=== PATIENT | male | born 1985 | race Caucasian/White ===

== ENCOUNTER 2024-07-20 19:26 | Inpatient (IN) | payer BC, SELFPAY ==
--- NOTE | ~2024-07-20 | CT_ITS ---
CLINICAL HISTORY: Severe abdominal distention, ascites?, SOB CT abdomen and pelvis without contrast Comparison: None Findings: Subsegmental atelectasis in the bases. Small hiatal hernia. 1.2 cm subcarinal lymph node. Hepatic steatosis. Hepatomegaly measuring 28.1 cm in the craniocaudal dimension. Gallbladder, pancreas, spleen, and adrenal glands are within normal limits. No hydronephrosis or urolithiasis. No bowel obstruction, pneumoperitoneum, or pneumatosis. Pelvic contents unremarkable. Normal appendix. Moderate abdominopelvic ascites. No acute fracture. IMPRESSION: 1. Moderate abdominopelvic ascites. 2. Hepatomegaly with hepatic steatosis. This document has been electronically signed by: Shannon Vidales MD on 07/20/2024 23:24:40
--- NOTE | ~2024-07-20 | US_ITS ---
Ultrasound guided paracentesis History: Symptomatic ascites. Risks and benefits and possible complications were discussed with the patient and consent form was signed. A safe pocket of ascitic fluid was identified using ultrasound guidance, and the overlying skin was marked. The right abdomen was prepped and draped in sterile fashion. 1% lidocaine was used as a local anesthetic. Using ultrasound guidance, a 5 fr catheter was placed into the ascitic pocket. 5.7 liters of yellow fluid was removed passively. The catheter was then removed. A few commercial pest control representative images from before and after the examination were obtained. The procedure was performed by Efren Montes De Oca NP and supervised by Kezia Posey MD. US/US paracentesis abd w/image Impression: Ultrasound-guided paracentesis as described above. No immediate complications Electronically signed by: Swapnil Posey MD 08/06/2024 01:55 PM EDT
--- NOTE | ~2024-07-20 | XR_ITS ---
CLINICAL HISTORY: dyspnea, tachycardic 2 view chest x-ray Comparison: None Findings: Low lung volume. Right basilar subsegmental atelectatic changes. Heart size is normal. No acute fracture. IMPRESSION: Low lung volume. Right basilar subsegmental atelectatic changes. Otherwise unremarkable. This document has been electronically signed by: Sabino Abad MD on 07/20/2024 20:27:02
[2024-07-20 19:34] VITALS: BP 127/79; PULSE 140; RESP 24; TEMP 36.3; O2SAT 92; BMI 42.2
--- NOTE | 2024-07-20 19:34 | ED_ITS ---
HPI - General Adult General Chief complaint: Dyspnea Stated complaint: sob,bilateral leg and abd swelling Time Seen by Provider: 07/20/24 21:07 Source: patient Mode of arrival: ambulatory Limitations: no limitations History of Present Illness ED Provider: DR. Bernal HPI narrative: 39-year-old male was history of hypertension was controlled with HCTZ patient is not compliant with the medication for the past year patient noticed that for the last 2 weeks is gaining weight and abdominal distension affecting his breathing, patient also noted bilateral lower, no fever, no chills, no bleeding disorders, congestive heart failure, no known kidney disease, patient admit to drinking alcohol every day. Never had this problem in the past. Related Data Allergies Allergy/AdvReac Type Severity Reaction Status Date / Time No Known Allergies Allergy Verified 07/20/24 19:37 Review of Systems 2 Review of Systems: All other systems are reviewed and are negative Constitutional: Reports as per HPI and Reports no additional constitutional complaints Eyes: Reports as per HPI and Reports no additional eye complaints Reports system reviewed and no additional complaints, except as documented Cardiovascular: Reports as per HPI and Reports no additional cardiovascular complaints Respiratory: Reports as per HPI and Reports no additional respiratory complaints Gastrointestinal: Reports as per HPI and Reports no additional gastrointestinal complaints Genitourinary: Reports no additional female genitourinary complaints Musculoskeletal: Reports no additional musculoskeletal complaints Skin/Breast: Reports system reviewed and no additional complaints, except as docu Psychiatric: Reports no additional psychiatric complaints Endocrine: Reports no additional endocrine complaints Hematologic/Lymphatic: Reports no additional hematologic/lymphatic complaints Allergic/Immunologic: Reports no additional allergic/immunologic complaints Reports system reviewed and no additional complaints, except as documented and Reports Abnormal speech present [facility] Social History Social History Alcohol intake: current Alcohol intake frequency: 3 or more drinks per day Alcohol type: hard liquor Smoked in Last 30 Days: No Use of substances other than those prescribed or required for medical reasons: No Advance Directives: No Advance Directives Information Provided: No Do you have a plan to hurt others: No Plan Physical Exam ED Vital Signs: Vital Signs - 24 hr 07/20/24 19:34 07/20/24 20:12 07/20/24 20:13 Temperature 97.3 F Pulse Rate 140 H 133 H Respiratory Rate 24 H 34 H Blood Pressure 127/79 124/84 Pulse Oximetry 92 90 L 93 Oxygen Delivery Method Room Air Room Air Nasal Cannula Oxygen Flow Rate 2 07/20/24 21:34 07/20/24 22:48 Temperature Pulse Rate 146 H 134 H Respiratory Rate 30 H 30 H Blood Pressure 126/81 126/79 Pulse Oximetry 96 96 Oxygen Delivery Method Nasal Cannula Nasal Cannula Oxygen Flow Rate 2 2 BMI result Body Mass Index 42.2 Vital signs have been reviewed and appear to be correct. Blood pressure elevated. Heart rate normal. Respiratory rate normal. Temperature normal. Oxygen saturation normal. Appearance: Alert. Oriented X3. No acute distress. Head: Normal external exam. Normocephalic. Atraumatic. No Rm signs noted. No raccoon eyes noted Eyes: PERRLA. EOMI. Conjunctiva and sclera normal. Eyelids normal. ENT: TM's Normal. Pharynx normal. Uvula midline. Moist mucous membranes. No trismus noted. No drooling noted. No muffled voice noted. Neck: Normal inspection. Neck supple. FROM. No adenopathy. Thyroid Normal. No meningeal signs. No neck mass noted. CVS: Normal heart rate and rhythm. Heart sound normal. No murmurs noted. Pulses normal throughout. Respiratory: No respiratory distress. Painless inspiration. Breath sounds normal. No wheezes/rales/rhonchi noted. Chest nontender. No accessory muscle usage noted or decreased air movement noted. Abdomen: Distended, with diffuse ascites, Bowel sounds normal in all 4 quadrants. No distention noted. No organomegaly noted. No visible injury noted. Back: No CVA tenderness. Full range of motion noted. Skin: Skin warm and dry. Normal skin color. Normal skin turgor. No rashes/lesions/lacerations noted. Extremities: +2 bilateral lower extremity edema. Extremities exhibit normal range of motion. Extremities nontender. Neuro: Oriented X 3. Cranial nerve exam: II-XII are grossly intact No motor deficit. No sensory deficit. Reflexes normal. Course Course Course Narrative: This is a rapid medical exam performed by Danna Martinez NP: Additional HPI, ROS, PE not included below will be deferred to primary provider. Patient is a 39-year-old male with history of HTN, was previously on HCTZ but stopped taking it on his own, presenting to the ED with complaint of dyspnea, abdominal distention and lower extremity edema for the past week. Reports weight gain but does not know how much. Denies prior dx of heart failure or hepatic disease. Tachycardic and hypoxic in triage, speaking 3-4 word sentences. Plan: EKG, labs, cxr Reevaluation(s) Reevaluation #1: 39 year no cardiac, renal, or hepatic history well known history of alcohol intake daily, was elevated LFTs and ascites, s/p abdominal paracentesis drained 5200 mL, patient feels better able to breathe better, abdomen is less distended. Will admit, no suspicion for SBP. Lactulose for elevated ammonia. Time: 01:15 Medications Administered Discontinued Medications Generic Name Dose Route Start Last Admin Trade Name Freq PRN Reason Stop Dose Admin Albumin Human 100 mls @ 133.333 mls/hr 07/20/24 21:30 07/20/24 23:24 Kedbumin 25 % IV 07/20/24 23:14 Infused Q1H ANTHONY Infusion Lactulose 60 gm 07/20/24 22:04 07/20/24 22:34 Lactulose 20 Gm/30 Ml Solution PO 07/20/24 22:05 60 gm ONCE ONE Administration Procedures Paracentesis Time Out Performed: Yes Indication: Ascites Procedure: therapeutic paracentesis Location: LLQ Local Anesthetic: lidocaine 1% Amount of anesthesia used (mL): 5 Bedside Ultrasound Used: yes, Ascites confirmed and location marked Preparation: sterile prep and drape Amount of fluid obtained (mL): 5,200 Fluid: clear Size of Needle Used: 20 Post Procedure Exam: awake, alert Patient Tolerated Procedure: well Complications: none Medical Decision Making Differential Diagnosis Differential Diagnoses: The differential diagnosis associated with the presentation includes (Alcoholic hepatitis, ascites, MASSIEL, CHF, derangement, severe anemia.) Admission/Observation Consideration of admission/observation: Escalation of care including admission/observation considered Lab Data MDM Lab Attestation statement: I reviewed the patient's lab results. 07/20/24 19:48 07/20/24 19:48 Labs: Lab Results 07/20/24 07/20/24 07/20/24 Range/Units 19:48 19:55 21:38 WBC 16.9 H (4.8-10.8) X10*3/uL RBC 3.31 L (4.60-5.80) X10*6/uL Hgb 12.1 L (14.0-18.0) g/dl Hct 35.7 L (42.0-52.0) % MCV 107.9 H (80.0-98.0) fL MCH 36.6 H (27.0-33.0) pg MCHC 33.9 (31.0-36.0) g/dl RDW 18.6 H (11.0-16.0) % Plt Count 176 (160-400) X10*3/uL MPV 10.0 (9.4-12.4) fL Immature Gran % (Auto) 1.1 H (0.0-0.4) % Neut % (Auto) 79.2 H (45-73) % Lymph % (Auto) 11.1 L (20-40) % [place] % (Auto) 7.5 (2-11) % Eos % (Auto) 0.3 (0-4) % Baso % (Auto) 0.8 (0-2) % Lymph # (Auto) 1.9 (1.2-4.9) X10*3/uL [place] # (Auto) 1.3 H (0.1-1.2) X10*3/uL Eos # (Auto) 0.1 (0.0-0.4) X10*3/uL Baso # (Auto) 0.1 (0.0-0.2) X10*3/uL Abs Immat Gran (auto) 0.18 H (0.00-0.03) X10*3/uL Absolute Neuts (auto) 13.4 H (2.0-8.3) x10*3/uL Absolute Nucleated RBC 0.020 H (0.0-0.012) X10*3/uL Nucleated RBC % (auto) 0.1 (0.0-0.2) /100WBC PT 15.5 H (10.9-12.4) SEC INR 1.3 H (0.9-1.1) VBG pH 7.49 H (7.32-7.43) VBG pCO2 33 mmHg VBG pO2 182 mmHg VBG HCO3 26 (22-26) mmol/L VBG O2 Saturation 100.0 % VBG Base Excess 3.2 mmol/L Sodium 134 L (135-145) mmol/L Potassium 4.2 (3.3-5.1) mmol/L Chloride 101 (96-108) mmol/L Carbon Dioxide 22 (22-29) mmol/L Anion Gap 15 (12-20) BUN 5 L (9-16) mg/dL Creatinine 0.80 (0.5-1.4) mg/dL Estim Creat Clear Calc 158.2 Estimated GFR > 60 Random Glucose 157 H (60-115) mg/dL Calcium 7.8 L (8.4-10.2) mg/dL Magnesium 1.8 (1.6-2.6) mg/dL Total Bilirubin 4.0 H (0.0-1.0) mg/dL AST 290 H (5-37) U/L ALT 88 H (0-40) U/L Alkaline Phosphatase 379 H (39-117) U/L Ammonia 72 H (13-55) umol/L Troponin I High Sens 5.0 (<3.5-35.0) ng/L B-Natriuretic Peptide < 10 (<100) pg/mL Total Protein 7.8 (6.5-8.0) g/dL Albumin 2.5 L (3.5-5.0) g/dL Lipase 111 H (8-78) U/L Influenza Type A (PCR) NEGATIVE (Negative) Influenza Type B (PCR) NEGATIVE (Negative) RSV RNA Qual (PCR) NEGATIVE (Negative) SARS-CoV-2 RNA (RT-PCR) NEGATIVE (Negative) Independent Interpretation I performed an independent interpretation of an: Plain X-Ray (Chest:Low lung volume. Right basilar subsegmental atelectatic changes. Otherwise unremarkable.) and CT Scan (Abdomen pelvis:1. Moderate abdominopelvic ascites. 2. Hepatomegaly with hepatic steatosis.) Radiology Impression Discussion of test interpretation with radiology: I have reviewed the radiologist's reading. Critical Care Time Critical Care Time Critical Care Time: Yes Total Critical Care Time: 60 Attestation: The patient was critically ill with a high probability of imminent or life- threatening deterioration. I spent greater than 30 minutes of discontinuous time evaluating the patient, delivering critical care at the bedside, discussing evaluating data with consultants. Critical care time does not include time spent performing separately billable procedures or teaching. Time spent performing critical care was 60 minutes. Discharge Plan Discharge Clinical Impression: Acute hepatic encephalopathy, Abdominal ascites Patient Disposition: Admitted As Inpatient Print Language: Panamanian
--- NOTE | 2024-07-20 19:37 | ECG_ITS ---
Test Reason : tachycardia Blood Pressure : */* mmHG Vent. Rate : 130 BPM Atrial Rate : 130 BPM P-R Int : 164 ms QRS Dur : 72 ms QT Int : 404 ms P-R-T Axes : 41 8 37 degrees QTcB Int : 594 ms Sinus tachycardia Inferior infarct , age undetermined Possible Anterior infarct , age undetermined Abnormal ECG No previous ECGs available Referred By: Kina Martinez Electronically Signed By: ESTEVAN SHEPHERD
[2024-07-20 19:54] LABS: MANUAL DIFF FLAG NO
[2024-07-20 19:58] LABS: Venous Blood Gas Refer to POC result
[2024-07-20 19:59] LABS: VBG Base Excess 3.2 mmol/L; VBG HCO3 26 mmol/L (22-26); VBG pCO2 33 mmHg; VBG pH 7.49 (7.32-7.43); VBG pO2 182 mmHg
[2024-07-20 20:06] LABS: Basophils Absolute Auto 0.1 X10*3/uL (0.0-0.2); Basophils Percent Auto 0.8 % (0-2); Eosinophils Absolute Auto 0.1 X10*3/uL (0.0-0.4); Eosinophils Percent Auto 0.3 % (0-4); Hematocrit 35.7 % (42.0-52.0); Hemoglobin 12.1 g/dl (14.0-18.0); Imm Gran Abs Auto 0.18 X10*3/uL (0.00-0.03); Imm Gran Pct Auto 1.1 % (0.0-0.4); Lymphocytes Absolute Auto 1.9 X10*3/uL (1.2-4.9); Lymphocytes Percent Auto 11.1 % (20-40); Mean Corpuscular HGB Conc 33.9 g/dl (31.0-36.0); Mean Corpuscular Hemoglobin 36.6 pg (27.0-33.0); Mean Corpuscular Volume 107.9 fL (80.0-98.0); Monocytes Absolute Auto 1.3 X10*3/uL (0.1-1.2); Monocytes Percent Auto 7.5 % (2-11); NRBC Pct Auto 0.1 /100WBC (0.0-0.2); Neutrophils Absolute Auto 13.4 x10*3/uL (2.0-8.3); Neutrophils Percent Auto 79.2 % (45-73); Platelet Count 176 X10*3/uL (160-400); Red Blood Count 3.31 X10*6/uL (4.60-5.80); Red Cell Distribution Width 18.6 % (11.0-16.0); White Blood Count 16.9 X10*3/uL (4.8-10.8)
[2024-07-20 20:12] VITALS: BP 124/84; PULSE 133; RESP 34; O2SAT 90
[2024-07-20 20:13] VITALS: O2SAT 93
[2024-07-20 20:14] LABS: INTERNATIONAL NORM RATIO 1.3 (0.9-1.1); Prothrombin Time 15.5 SEC (10.9-12.4)
[2024-07-20 20:16] LABS: Alanine Aminotransferase 88 U/L (0-40); Albumin Level 2.5 g/dL (3.5-5.0); Alkaline Phosphatase 379 U/L (39-117); Anion Gap 15 (12-20); Aspartate Amino Transferase 290 U/L (5-37); Blood Urea Nitrogen 5 mg/dL (9-16); Calcium 7.8 mg/dL (8.4-10.2); Carbon Dioxide 22 mmol/L (22-29); Chloride 101 mmol/L (96-108); Creatinine Clr Calc Pharmacy 158.2; Estimated Glomerular Filt Rate > 60; Glucose Random 157 mg/dL (60-115); Lipase 111 U/L (8-78); Magnesium 1.8 mg/dL (1.6-2.6); Potassium 4.2 mmol/L (3.3-5.1); Sodium 134 mmol/L (135-145); Total Protein 7.8 g/dL (6.5-8.0)
[2024-07-20 20:21] LABS: B Type Natriuretic Peptide < 10 pg/mL (<100)
[2024-07-20 20:43] LABS: Influenza A PCR NEGATIVE (Negative); Influenza B PCR NEGATIVE (Negative); Resp Syncy Virus RNA Qual PCR NEGATIVE (Negative); SARS COV2 PCR INHOUSE NEGATIVE (Negative)
[2024-07-20 21:34] VITALS: BP 126/81; PULSE 146; RESP 30; O2SAT 96
[2024-07-20] MEDS: Albumin Human 25 % 100 ML 133.33 ML IV ×2 (21:42→22:34)
--- NOTE | 2024-07-20 21:42 | PC.NURSE ---
18gIV placed in the right AC - medication administered per provider order. pt waiting for CT to be completed at this time. plan of care ongoing. call lópez placed within reach.
[2024-07-20 21:50] LABS: Ammonia 72 umol/L (13-55)
--- NOTE | 2024-07-20 22:02 | PC.NURSE ---
pt continuously sitting on the floor refusing to get back into bed until he is able to drink water. pt educated on importance of staying NPO until CT scans have been resulted. pt still refusing despite education. provider notified/aware/gave approval for patient to drink water. pt provided w/ water at this time. assisted back into bed. pt still waiting for CT to be completed at this time. plan of care ongoing. call lópez placed within reach.
--- NOTE | 2024-07-20 22:11 | PC.NURSE ---
pt to CT at this time.
[2024-07-20] MEDS: Lactulose 20 GM/30 ML SOLUTION 60 GM PO (22:34)
[2024-07-20 22:48] VITALS: BP 126/79; PULSE 134; RESP 30; O2SAT 96
--- NOTE | 2024-07-20 23:32 | PC.NURSE ---
assumed care for pt at this time. pt a&ox4 standing up in bed refusing to get back in until he gets more water. pt educated on why he is NPO and pt continues to refuse to get into bed. pt given sponge dipped in ice cold water but was only somewhat effective. Provider aware at this time. Pt pending ct results at this time.
[2024-07-21] VITALS (12 sets, daily range): BP systolic 111–141; BP diastolic 61–87; PULSE 117–134; RESP 18–31; TEMP 36.3–38.2; O2SAT 94; BMI 40.8
--- NOTE | 2024-07-21 | ECG_ITS ---
Test Reason : qtc prolongation Blood Pressure : */* mmHG Vent. Rate : 122 BPM Atrial Rate : 122 BPM P-R Int : 140 ms QRS Dur : 74 ms QT Int : 324 ms P-R-T Axes : 44 26 54 degrees QTcB Int : 461 ms Sinus tachycardia Inferior infarct (cited on or before 20-Jul-2024) Cannot rule out Anterior infarct (cited on or before 20-Jul-2024) Abnormal ECG When compared with ECG of 20-Jul-2024 19:41, No significant change was found Referred By: Blanche Laboy Electronically Signed By: ESTEVAN SHEPHERD
[2024-07-21 01:33] LABS: WBC Peritoneal Fluid 0.245 X10*3/uL
--- NOTE | 2024-07-21 01:40 | PC.NURSE ---
Paracentisis performed by Dr. Bernal, pt tolerated well. Approximately 5300 ml drained and specimen's sent to lab. VSS throughout. pt a&ox4 speaking in full clear sentence able to make his needs known. pt pending admitting orders and bed assigment. pt updated on plan. call lópez is within reach plan of care ongoing
[2024-07-21 01:49] LABS: RBC Peritoneal Fluid < 0.002 X10*6/uL
--- NOTE | 2024-07-21 01:56 | P.HPHOSP_ITS ---
History of Present Illness Date of Service: 07/21/24 Attending physician on admission: Kumar Joy Chief Complaint: SOB, weight gain pt is a 39 yo male with a pmhx significant for HTN (non compliant with meds x1 year), who presented to the ED due to weight gain, abd distension, and SOB. he states he has noticed weight gain for at least 3 weeks and has has increasing SOB and LE edema. he drinks 6-7 shots/day, his last drink about 11am yesterday. he has never had etoh withdrawal, but has never gone days without drinking. In the ED he was found to have moderate ascites on an A/P CT and 5200ml was drawn off and sent to the lab for analysis. his SOB has improved. he denies any chest pain, nausea, vomiting, hematemesis or melena. since having the paracentesis he is having moderate/severe abd pain. Review of Systems 2 Constitutional: Constitutional: Denies body ache(s), Denies chills, Denies fever(s) and Denies headache(s) ENT: Denies headache(s) Neurologic: Denies headache(s) [facility] Social History Alcohol intake: current Alcohol intake frequency: 3 or more drinks per day Alcohol type: hard liquor Smoked in Last 30 Days: No Use of substances other than those prescribed or required for medical reasons: No Advance Directives: No Advance Directives Information Provided: No Do you have a plan to hurt others: No Plan Meds Allergies Allergy/AdvReac Type Severity Reaction Status Date / Time No Known Allergies Allergy Verified 07/20/24 19:37 Active Medications: Current Medications Acetaminophen (Acetaminophen 325 Mg Tablet) 650 mg PO Q6H PRN PRN Reason: Pain, Mild 1-3,fever,headache Calcium Carbonate (Calcium Carbonate 750 Mg Tab.Chew) 750 mg PO Q4H PRN PRN Reason: Heartburn Ceftriaxone Sodium (Ceftriaxone Sodium 1 Gm Vial) 1 gm IVPUSH BEDTIME ANTHONY Magnesium Hydroxide (Milk Of Magnesia 30 Ml Oral.Susp) 30 ml PO DAILY PRN PRN Reason: Constipation Melatonin (Melatonin 3 Mg Tablet) 6 mg PO BEDTIME PRN PRN Reason: Insomnia Morphine Sulfate (Morphine Sulfate 2 Mg/Ml Cartridge) 2 mg IVPUSH Q4H PRN; Protocol PRN Reason: Pain, Severe (Pain Scale 7-10) Oxycodone HCl (Oxycodone Hcl Immed Release 5 Mg Tablet) 5 mg PO Q6H PRN PRN Reason: Pain, Moderate(Pain Scale 4-6) Sodium Chloride (0.9 % Sodium Chloride Flush 3 Ml Syringe) 3 ml IVFLUSH QSHIFT ANTHONY Physical Exam 2 Vital Signs and Narrative: Vital Signs: Last Vital Signs Temp 97.3 F 07/20/24 19:34 Pulse 128 H 07/21/24 00:24 Resp 18 07/21/24 00:24 BP 141/87 H 07/21/24 00:24 Pulse Ox 96 07/20/24 22:48 O2 Del Method Nasal Cannula 07/20/24 22:48 O2 Flow Rate 2 07/20/24 22:48 BMI result Body Mass Index 42.2 Results Labs 07/20/24 19:48 07/20/24 19:48 Labs: Laboratory Results - last 24 hr 07/20/24 07/20/24 07/20/24 19:48 19:55 21:38 MCV 107.9 H MCH 36.6 H MCHC 33.9 RDW 18.6 H Plt Count 176 MPV 10.0 Immature Gran % (Auto) 1.1 H Neut % (Auto) 79.2 H Lymph % (Auto) 11.1 L [place] % (Auto) 7.5 Eos % (Auto) 0.3 Baso % (Auto) 0.8 Lymph # (Auto) 1.9 [place] # (Auto) 1.3 H Eos # (Auto) 0.1 Baso # (Auto) 0.1 Abs Immat Gran (auto) 0.18 H Absolute Neuts (auto) 13.4 H Absolute Nucleated RBC 0.020 H Nucleated RBC % (auto) 0.1 PT 15.5 H INR 1.3 H VBG pH 7.49 H VBG pCO2 33 VBG pO2 182 VBG HCO3 26 VBG O2 Saturation 100.0 VBG Base Excess 3.2 Anion Gap 15 Estim Creat Clear Calc 158.2 Estimated GFR > 60 Random Glucose 157 H Calcium 7.8 L Magnesium 1.8 Total Bilirubin 4.0 H AST 290 H ALT 88 H Alkaline Phosphatase 379 H Ammonia 72 H B-Natriuretic Peptide < 10 Total Protein 7.8 Albumin 2.5 L Lipase 111 H Influenza Type A (PCR) NEGATIVE Influenza Type B (PCR) NEGATIVE RSV RNA Qual (PCR) NEGATIVE SARS-CoV-2 RNA (RT-PCR) NEGATIVE Assessment and Plan (1) Acute hepatic encephalopathy: Status: Acute (2) Abdominal ascites: Status: Acute (3) Macrocytic anemia: Status: Acute (4) Hyperammonemia: Status: Acute (5) ETOH abuse: Status: Acute (6) Prolonged QT interval: Status: Acute (7) Elevated random blood glucose level: Status: Acute (8) Morbid obesity with BMI of 40.0-44.9, adult: Status: Acute Plan pt is a 39 yo male with a pmhx significant for HTN (non compliant with meds x1 year), who presented to the ED due to weight gain, abd distension, and SOB. In the ED he was found to have moderate ascites on an A/P CT and 5200ml was drawn off and sent to the lab for analysis. abd ascites/elevated LFTs - WBC 16.9, tachycardia and tachypenic likely due to fluid overload, BP stable. lactic acid and blood cultures x2 pending, no sepsis - CXR negative for pulmonary edema or pneumonia - A/P CT with moderate ascites and hepatomegaly with steatosis - 5200ml drawn off with paracentesis and albumin replaced. fluid sent for analysis. - ceftraixone for SBP prophy - AST 290, ALT 88, alk phos 379, t bili 4.0, lipase 111 - hepatitis panel pending - GI consult - low salt diet - moniotr CBC abd CMP acute hepatic encephalopathy - ammonia 72 - given lactulose 60g in ED - recheck ammonia with AM labs macrocytic anemia - likely secondary to etoh abuse - check iron panel, folate and B12 - hgb 12.1, hct 35.7, no need for blood transfusion - monitor CBC etoh abuse - monitor CIWA - consider phenobarb if CIWA scores elevated - addiction med consult - etoh cessation encouraged prolonged QT - likely secondary to ascites, repeat EKG elevated blood glucose - check A1C morbid obesity - BMI 42.2 - weight loss encouraged full code VTE prophy: pneumoboots, consider switching to anticoagulant if GI does not want EGD Pt with acute hepatic encephalopathy and ascities s/p paracentesis requiring admission for at least 2 midnights stay for monitoring and GI consultation. Quality Stroke Does the patient have a stroke diagnosis?: No VTE Prior VTE?: No VTE Risk Level:: Medical - moderate - high VTE Device Contraindication: N/A - Device Ordered VTE Drug Contraindication: Treatment Not Indicated
[2024-07-21] MEDS: Morphine Sulfate 2 MG/ML CARTRIDGE IVPUSH ×3 (02:10→20:06)
[2024-07-21 02:20] LABS: BF Shift QC OK YES; Lymphocyte Peritoneal Fl 14 %; Monocytes Peritoneal Fl 13 %; Neutrophils Peritoneal Fluid 6 %; Other Peritioneal Fl 67 %
[2024-07-21] MEDS: cefTRIAXone sodium 1 GM VIAL IVPUSH ×2 (02:28→21:07)
[2024-07-21 03:03] LABS: Lactic Acid 2.1 mmol/L (0.5-2.0)
[2024-07-21 04:29] LABS: Reflex Lactate? Lactic Acid Added
[2024-07-21] MEDS: oxyCODONE HCl Immed Release 5 MG TABLET PO ×2 (04:32→15:40)
[2024-07-21 04:58] LABS: MANUAL DIFF FLAG NO
[2024-07-21 05:00] LABS: Basophils Absolute Auto 0.1 X10*3/uL (0.0-0.2); Basophils Percent Auto 0.4 % (0-2); Eosinophils Percent Auto 0.2 % (0-4); Hematocrit 30.5 % (42.0-52.0); Hemoglobin 10.6 g/dl (14.0-18.0); Imm Gran Abs Auto 0.09 X10*3/uL (0.00-0.03); Imm Gran Pct Auto 0.7 % (0.0-0.4); Lymphocytes Absolute Auto 1.3 X10*3/uL (1.2-4.9); Lymphocytes Percent Auto 9.6 % (20-40); Mean Corpuscular HGB Conc 34.8 g/dl (31.0-36.0); Mean Corpuscular Hemoglobin 37.3 pg (27.0-33.0); Mean Corpuscular Volume 107.4 fL (80.0-98.0); Monocytes Absolute Auto 1.2 X10*3/uL (0.1-1.2); Monocytes Percent Auto 8.9 % (2-11); NRBC Pct Auto 0.1 /100WBC (0.0-0.2); Neutrophils Percent Auto 80.2 % (45-73); Platelet Count 132 X10*3/uL (160-400); Red Blood Count 2.84 X10*6/uL (4.60-5.80); Red Cell Distribution Width 18.6 % (11.0-16.0); White Blood Count 13.7 X10*3/uL (4.8-10.8)
[2024-07-21 05:10] LABS: Ammonia 60 umol/L (13-55)
[2024-07-21 05:22] LABS: ~Lactic Acid-LAB USE ONLY 2.2 mmol/L (0.5-2.0)
[2024-07-21 05:25] LABS: Alanine Aminotransferase 71 U/L (0-40); Albumin Level 2.7 g/dL (3.5-5.0); Anion Gap 16 (12-20); Aspartate Amino Transferase 250 U/L (5-37); Bilirubin Total 3.9 mg/dL (0.0-1.0); Blood Urea Nitrogen 6 mg/dL (9-16); Calcium 7.6 mg/dL (8.4-10.2); Carbon Dioxide 23 mmol/L (22-29); Chloride 99 mmol/L (96-108); Creatinine Clr Calc Pharmacy 170.4; Estimated Glomerular Filt Rate > 60; Glucose Random 136 mg/dL (60-115); Iron 57 mcg/dL (45-160); Magnesium 1.6 mg/dL (1.6-2.6); Percent Iron Saturation 52 % (15-50); Sodium 134 mmol/L (135-145); Total Iron Binding Capacity 110 mcg/dL (228-428); Total Protein 7.2 g/dL (6.5-8.0); Unsaturated Iron Binding 53 ug/dL
--- NOTE | 2024-07-21 05:27 | PM.EVENT ---
Event Note Date of Service: 07/21/24 Event Note: lactic acidosis secondary to liver disease. no infectious etiology at this time. pt receiving ceftriaxone for SBP prophylaxis. BP stable. avoiding IVF due to severe fluid overload with ascites and fluids not needed at this time. Time Spent With Patient Time: Total time managing care of this patient today ____ minutes.
--- NOTE | 2024-07-21 05:33 | PC.NURSE ---
2nd lactic acid 2.2 notified.
[2024-07-21 05:56] LABS: Alkaline Phosphatase 309 U/L (39-117)
[2024-07-21 06:12] LABS: Folate 5.8 ng/mL (> or = 4.0); Vitamin B12 1177 pg/mL (200-900)
[2024-07-21 06:56] LABS: Reflex Lactate? 2 Y
[2024-07-21 07:41] LABS: Estimated Average Glucose 123 mg/dL; Hemoglobin A1C 136.3073 umol/L; Hemoglobin A1c % 5.9 % (<6.0); Total Hemoglobin (HGBA1C) 3289.7014 umol/L
[2024-07-21 08:22] LABS: ~Lactic Acid-LAB USE ONLY 2.1 mmol/L (0.5-2.0)
[2024-07-21 08:32] LABS: HBS Num1 133.23 mIU/mL (0-7.99); HBc Num1 0.12 S/CO (0.00-0.79); HBsAGNum1 0.23 S/CO (0.00-0.99); Hepatitis A Antibody IgM 0.17 Index (0-0.79); Hepatitis B Core Antibody Nonreactive (Nonreactive); Hepatitis B Surface Antigen Negative (Negative); ~HepC Num1 0.18 S/CO (0.00-0.79); ~Hepatitis A Antibody IgM Nonreactive (Nonreactive); ~Hepatitis B Surface Antibody REACTIVE (Nonreactive); ~Hepatitis C Antibody Nonreactive (Nonreactive)
[2024-07-21] MEDS: 0.9 % Sodium Chloride Flush 3 ML SYRINGE IVFLUSH ×3 (09:18→19:04)
--- NOTE | 2024-07-21 09:47 | PHA.MEDREC ---
Addendum entered by Mars Sue RP 07/21/24 10:26: Reviewed by [facility] Original Note: Pharmacy Consult ? Medication Reconciliation Pharmacy has completed the medication reconciliation. Spoke with patient and she confirmed he is not taking any medications at this time and states he has not taken any prescription medication (Hydrochlorothiazide) in about 1 year.
--- NOTE | 2024-07-21 09:53 | PM.EVENT ---
Event Note Date of Service: 07/21/24 Event Note: Seen and evaluated this morning Feels little better but reports abdominal pain after 5L ascitic fluids removal no fever or chills Pending GI eval Give IV Albumin for reported pain post paracentesis Fluid analysis not showing many PMNs. less likely SBP kept on prophylaxis CEftriaxone, to wait until LDH and GI consults done CIWA protocol Monitor LFT Lactic acidosis due to liver dysfunction not due to sepsis Time Spent With Patient Time: Total time managing care of this patient today ____ minutes.
[2024-07-21 10:20] LABS: Cancel Lactic Acid Canceled
[2024-07-21] MEDS: Albumin Human 25 % 100 ML IV ×2 (10:39→15:41)
--- NOTE | 2024-07-21 12:34 | HO.ADDICTCON ---
History of Present Illness Date of Service: 07/21/2024 Chief Complaint: Ascites Reason for Consult: AUD Sources of Information: patient interviewed and chart reviewed HPI Narrative: Patient is a 39 year old male who presented to [facility] ED with SOB, LLLE and weight gain. Found to have ascites--paracentisis while in ED, admitted. Consult requested as patient reported daily drinking. Patient seen in room 354. He is awake, alert, engaged in interview. He reports he has been drinking daily for about 10 years. Started with beers, then transitioned to nips of vodka, which is what he drinks now--btwn 5-8 throughout the day. Denies any history withdrawal sx, denies any history of treatment or cutting down Reports no issues with appetite, states he eats throughout the day. Does not feel alcohol has impacted his appetite. Denies any n/v at home Discussed current admission and relationship to alcohol, he reports that he is aware of why he is here, and I know I need to stop, because this sucks . Attempted to discuss thoughts on reducing alcohol or strategies--he reported that his is a RN and has spoken to him about medications. He denies any withdrawal sx, and appears comfortable overall. Reporting abdominal pain r/t paracentisis. Review of Systems Constitutional: Reports as per HPI Gastrointestinal: Reports abdominal pain, Denies melena, Denies loose stools and Denies nausea Psychiatric: Denies anxiety Diagnostics Vital Signs (24Hr): Vital Signs - 24 hr 07/20/24 19:34 07/20/24 20:12 07/20/24 20:13 Temperature 97.3 F Pulse Rate 140 H 133 H Respiratory Rate 24 H 34 H Blood Pressure 127/79 124/84 Pulse Oximetry 92 90 L 93 Oxygen Delivery Method Room Air Room Air Nasal Cannula Oxygen Flow Rate 2 07/20/24 21:34 07/20/24 22:48 07/21/24 00:24 Temperature Pulse Rate 146 H 134 H 128 H Respiratory Rate 30 H 30 H 18 Blood Pressure 126/81 126/79 141/87 H Pulse Oximetry 96 96 Oxygen Delivery Method Nasal Cannula Nasal Cannula Oxygen Flow Rate 2 2 07/21/24 00:46 07/21/24 00:51 07/21/24 00:56 Temperature Pulse Rate 127 H 123 H 124 H Respiratory Rate 26 H 28 H 31 H Blood Pressure 136/82 140/84 H 138/80 Pulse Oximetry Oxygen Delivery Method Oxygen Flow Rate 07/21/24 01:01 07/21/24 01:09 07/21/24 01:12 Temperature 98.2 F Pulse Rate 129 H 125 H 134 H Respiratory Rate 29 H 22 H 29 H Blood Pressure 132/72 131/77 111/61 Pulse Oximetry Oxygen Delivery Method Oxygen Flow Rate 07/21/24 04:00 07/21/24 07:04 Temperature 97.3 F 99.6 F Pulse Rate 120 H 117 H Respiratory Rate 18 18 Blood Pressure 136/75 119/68 Pulse Oximetry 94 94 Oxygen Delivery Method Room Air Nasal Cannula Oxygen Flow Rate 1 BMI result Body Mass Index 40.8 Labs 07/22/24 05:54 07/22/24 05:54 Labs: Laboratory Results - last 48 hr 07/20/24 07/20/24 07/20/24 19:48 19:55 21:38 WBC 16.9 H RBC 3.31 L Hgb 12.1 L Hct 35.7 L MCV 107.9 H MCH 36.6 H MCHC 33.9 RDW 18.6 H Plt Count 176 MPV 10.0 Immature Gran % (Auto) 1.1 H Neut % (Auto) 79.2 H Lymph % (Auto) 11.1 L [place] % (Auto) 7.5 Eos % (Auto) 0.3 Baso % (Auto) 0.8 Lymph # (Auto) 1.9 [place] # (Auto) 1.3 H Eos # (Auto) 0.1 Baso # (Auto) 0.1 Abs Immat Gran (auto) 0.18 H Absolute Neuts (auto) 13.4 H Absolute Nucleated RBC 0.020 H Nucleated RBC % (auto) 0.1 PT 15.5 H INR 1.3 H VBG pH 7.49 H VBG pCO2 33 VBG pO2 182 VBG HCO3 26 VBG O2 Saturation 100.0 VBG Base Excess 3.2 Sodium 134 L Potassium 4.2 Chloride 101 Carbon Dioxide 22 Anion Gap 15 BUN 5 L Creatinine 0.80 Estim Creat Clear Calc 158.2 Estimated GFR > 60 Random Glucose 157 H Estimat Average Glucose 123 Hemoglobin A1c % 5.9 Lactic Acid Lactic Acid F/U @ 2Hr Lactic Acid F/U @ 4Hr Calcium 7.8 L Magnesium 1.8 Iron TIBC % Saturation Unsat Iron Binding Total Bilirubin 4.0 H AST 290 H ALT 88 H Alkaline Phosphatase 379 H Ammonia 72 H Troponin I High Sens 5.0 B-Natriuretic Peptide < 10 Total Protein 7.8 Albumin 2.5 L Lipase 111 H Vitamin B12 Folate Peritoneal WBC Peritoneal RBC Periton Neutrophils Periton Lymphocytes Peritoneal Monocytes Peritoneal Other Cells Hepatitis A IgM Ab Nonreactive Hep Bs Antigen Negative Hep Bs Antibody REACTIVE Hep B Core Total Ab Nonreactive Hepatitis C Ab (EIA) Nonreactive Influenza Type A (PCR) NEGATIVE Influenza Type B (PCR) NEGATIVE RSV RNA Qual (PCR) NEGATIVE SARS-CoV-2 RNA (RT-PCR) NEGATIVE 07/21/24 07/21/24 07/21/24 01:23 02:21 04:51 WBC 13.7 H RBC 2.84 L Hgb 10.6 L Hct 30.5 L MCV 107.4 H MCH 37.3 H MCHC 34.8 RDW 18.6 H Plt Count 132 L MPV 10.0 Immature Gran % (Auto) 0.7 H Neut % (Auto) 80.2 H Lymph % (Auto) 9.6 L [place] % (Auto) 8.9 Eos % (Auto) 0.2 Baso % (Auto) 0.4 Lymph # (Auto) 1.3 [place] # (Auto) 1.2 Eos # (Auto) 0.0 Baso # (Auto) 0.1 Abs Immat Gran (auto) 0.09 H Absolute Neuts (auto) 11.0 H Absolute Nucleated RBC 0.020 H Nucleated RBC % (auto) 0.1 PT INR VBG pH VBG pCO2 VBG pO2 VBG HCO3 VBG O2 Saturation VBG Base Excess Sodium 134 L Potassium 4.0 Chloride 99 Carbon Dioxide 23 Anion Gap 16 BUN 6 L Creatinine 0.73 Estim Creat Clear Calc 170.4 Estimated GFR > 60 Random Glucose 136 H Estimat Average Glucose Hemoglobin A1c % Lactic Acid 2.1 H* Lactic Acid F/U @ 2Hr 2.2 H* Lactic Acid F/U @ 4Hr Calcium 7.6 L Magnesium 1.6 Iron 57 TIBC 110 L % Saturation 52 H Unsat Iron Binding 53 Total Bilirubin 3.9 H AST 250 H ALT 71 H Alkaline Phosphatase 309 H Ammonia 60 H Troponin I High Sens B-Natriuretic Peptide Total Protein 7.2 Albumin 2.7 L Lipase Vitamin B12 1177 H Folate 5.8 Peritoneal WBC 0.245 Peritoneal RBC < 0.002 Periton Neutrophils 6 Periton Lymphocytes 14 Peritoneal Monocytes 13 Peritoneal Other Cells 67 Hepatitis A IgM Ab Hep Bs Antigen Hep Bs Antibody Hep B Core Total Ab Hepatitis C Ab (EIA) Influenza Type A (PCR) Influenza Type B (PCR) RSV RNA Qual (PCR) SARS-CoV-2 RNA (RT-PCR) 07/21/24 07:46 WBC RBC Hgb Hct MCV MCH MCHC RDW Plt Count MPV Immature Gran % (Auto) Neut % (Auto) Lymph % (Auto) [place] % (Auto) Eos % (Auto) Baso % (Auto) Lymph # (Auto) [place] # (Auto) Eos # (Auto) Baso # (Auto) Abs Immat Gran (auto) Absolute Neuts (auto) Absolute Nucleated RBC Nucleated RBC % (auto) PT INR VBG pH VBG pCO2 VBG pO2 VBG HCO3 VBG O2 Saturation VBG Base Excess Sodium Potassium Chloride Carbon Dioxide Anion Gap BUN Creatinine Estim Creat Clear Calc Estimated GFR Random Glucose Estimat Average Glucose Hemoglobin A1c % Lactic Acid Lactic Acid F/U @ 2Hr Lactic Acid F/U @ 4Hr 2.1 H* Calcium Magnesium Iron TIBC % Saturation Unsat Iron Binding Total Bilirubin AST ALT Alkaline Phosphatase Ammonia Troponin I High Sens B-Natriuretic Peptide Total Protein Albumin Lipase Vitamin B12 Folate Peritoneal WBC Peritoneal RBC Periton Neutrophils Periton Lymphocytes Peritoneal Monocytes Peritoneal Other Cells Hepatitis A IgM Ab Hep Bs Antigen Hep Bs Antibody Hep B Core Total Ab Hepatitis C Ab (EIA) Influenza Type A (PCR) Influenza Type B (PCR) RSV RNA Qual (PCR) SARS-CoV-2 RNA (RT-PCR) Mental Status Exam Mental Status Exam Patient Appearance: Appropriate Level of Consciousness: Awake, Appropriate and Alert Patient Behavior: Appropriate, Guarded and Cooperative Mood Description: Calm Affect Description: Calm Speech Pattern: Clear Hallucinations: None Thought Process: Intact Thought Content: positive for Intact Medications Medications Current Medications Acetaminophen (Acetaminophen 325 Mg Tablet) 650 mg PO Q6H PRN PRN Reason: Pain, Mild 1-3,fever,headache Calcium Carbonate (Calcium Carbonate 750 Mg Tab.Chew) 750 mg PO Q4H PRN PRN Reason: Heartburn Ceftriaxone Sodium (Ceftriaxone Sodium 1 Gm Vial) 1 gm IVPUSH BEDTIME ANTHONY Last Admin: 07/21/24 02:28 Dose: 1 gm Albumin Human (Kedbumin 25 %) 100 mls @ 100 mls/hr IV Q6H ANTHONY Stop: 07/21/24 17:14 Last Infusion: 07/21/24 11:39 Dose: Infused Magnesium Hydroxide (Milk Of Magnesia 30 Ml Oral.Susp) 30 ml PO DAILY PRN PRN Reason: Constipation Melatonin (Melatonin 3 Mg Tablet) 6 mg PO BEDTIME PRN PRN Reason: Insomnia Morphine Sulfate (Morphine Sulfate 2 Mg/Ml Cartridge) 2 mg IVPUSH Q4H PRN; Protocol PRN Reason: Pain, Severe (Pain Scale 7-10) Last Admin: 07/21/24 09:25 Dose: 2 mg Oxycodone HCl (Oxycodone Hcl Immed Release 5 Mg Tablet) 5 mg PO Q6H PRN PRN Reason: Pain, Moderate(Pain Scale 4-6) Last Admin: 07/21/24 04:32 Dose: 5 mg Sodium Chloride (0.9 % Sodium Chloride Flush 3 Ml Syringe) 3 ml IVFLUSH QSHIFT [facility] Last Admin: 07/21/24 09:18 Dose: 3 ml Allergies Allergies Allergy/AdvReac Type Severity Reaction Status Date / Time No Known Allergies Allergy Verified 07/20/24 19:37 Assessment & Plan Assessment & Plan (1) Alcohol use disorder, severe, dependence: Status: Acute Code(s): F10.20 - Alcohol dependence, uncomplicated Assessment and Plan: CIWA in place thiamine and folic acid open to reviewing information on KENNEDI Total time managing care of this patient today __35__ minutes. [facility] Social History Social History Housing: House Alcohol intake: current Alcohol intake frequency: 3 or more drinks per day Alcohol type: hard liquor Patient Tobacco Use Status: Never used Tobacco Smoked in Last 30 Days: No Use of substances other than those prescribed or required for medical reasons: No Currently Displaying Signs/Symptoms of Drug Intoxication Withdrawal: No Any prior treatment program specific to substance use: No Have you been hit, kicked, punched, or otherwise hurt by someone within the past year? If so, by whom?: No Do you feel safe in your current relationship?: Yes Is there a partner from a previous relationship who is making you feel unsafe now?: No Are you made to feel afraid or neglected: No Advance Directives: No Advance Directives Information Provided: No Advance Directives on File: No Do you have a plan to hurt others: No Plan Recently lost weight without trying: No Eating poorly because of decreased appetite: No Nutrition Risks: No Nutritional Risk Poor oral hygiene: No service: No
[2024-07-21 13:18] LABS: Appearance Urine Clear; Color Urine Dark Yellow; Glucose Urine UA Negative (Negative); Leukocyte Esterase Urine Trace (Negative); Nitrite Urine Negative (Negative); PH 6.5 (5.0-9.0); UMIC TRIGGER UACC YES; Urine Blood Negative (Negative); Urine Ketones Trace mg/dL (Negative); Urine Protein 30 (1+) mg/dL (Neg-Trace)
[2024-07-21 13:23] LABS: Bacteria Urine None Seen (None Seen); Hyaline Casts Urine 0-2 /LPF (0-2); RBC Urine 0-2 /HPF (0-2); Squamous Epithelial Cell Urine 0-2 /HPF (0-2); WBC Urine 0-5 /HPF (0-5)
--- NOTE | 2024-07-21 14:22 | MHC.CM.PN ---
Male 39 DX Asytes S/P 5 liters of fluid removed ETOH CIWA Scale He lives with his x-. He is independent with all functional mobility. Patient does not have a pcp. He has declined the offer to document a HCP. He has provided update to insurance coverage. DP home self care private transport.
[2024-07-21] MEDS: Acetaminophen 325 MG TABLET 650 MG PO (15:40)
--- NOTE | 2024-07-21 15:44 | CONS_ITS ---
DATE OF SERVICE: 07/21/2024 REFERRING PHYSICIAN: MADHAV Weiss REASON FOR CONSULTATION: Ascites and alcoholic liver disease. HISTORY OF PRESENT ILLNESS: The patient is a pleasant 39-year-old man with a long history of alcohol use, who was admitted to the hospital after presenting to the emergency room yesterday with weight gain and abdominal distention. He has a history of heavy alcohol use and reports drinking vodka on a daily basis regularly. Over the past several weeks, he has noted weight gain and abdominal distention to the point where it has affected his breathing. He also had lower extremity edema. He denies hematemesis, melena, hematochezia, or jaundice. He was evaluated in the emergency room with laboratory studies and imaging. CT scanning of the abdomen and pelvis is reviewed. This shows hepatomegaly with hepatic steatosis and moderate abdominopelvic ascites. Liver function tests are elevated in a pattern consistent with alcoholic liver disease. INR was slightly elevated at 15.5. Since admission, he has undergone paracentesis with removal of approximately 1.7 L of ascites fluid by his report. He has had some abdominal pain after this. He denies any prior history of liver problems and he has felt shaky when he has had illness and been unable to drink. He has not undergone prior detoxification. PAST MEDICAL HISTORY: Hypertension. CURRENT MEDICATIONS: His current medication list is reviewed in the chart. ALLERGIES: THERE ARE NONE REPORTED. FAMILY HISTORY: This is reviewed with the patient and is noncontributory. SOCIAL HISTORY: There is alcohol use as described above. REVIEW OF SYSTEMS: SKIN: No pruritus. HEENT: Negative. CARDIOPULMONARY: No shortness of breath or chest pain. GASTROINTESTINAL: As above. GENITOURINARY: Negative. NEUROPSYCHIATRIC: Negative. PHYSICAL EXAMINATION: GENERAL: Shows a pleasant male, lying in bed. He is tremulous. SKIN: Anicteric. HEENT: Shows no scleral icterus. NECK: Without lymphadenopathy or thyromegaly. LUNGS: Clear. HEART: Shows a regular rate and rhythm. S1, S2. No murmur. ABDOMEN: Protuberant and firm. Bowel sounds are present. There is no guarding, tenderness, or rebound. He does have some mild diffuse discomfort with deep palpation. No masses are felt. EXTREMITIES: Show 3 mm pretibial pitting edema. LABORATORY STUDIES AND IMAGING: Reviewed as above. IMPRESSION: Alcoholic hepatitis with ascites. I discussed with him the need to avoid alcohol. At this time, he appears slightly tremulous and I would agree with monitoring him for alcohol withdrawal and phenobarbital treatment is an option. I would recommend starting diuretics. These have been ordered. The goal would be to increase urinary output to approximately greater than 500 mL of total fluid intake and I discussed this with him. His current blood work suggests he would not benefit from steroid treatment in the short run, so defer this for the time being and monitor him clinically. Repeat paracentesis can be done as needed and replacement albumin can be given as is being done. Thanks for asking me to see him. I will follow him in the hospital with you. MD VICTORINA Siddiqui/DANE / [phone]
[2024-07-21] MEDS: PHENobarbitaL sodium 130 MG/ML IM ONCE 265 MG IM (17:24)
[2024-07-21] MEDS: Furosemide 20 MG/2 ML VIAL IVPUSH (19:03)
[2024-07-21] MEDS: Spironolactone 25 MG TABLET PO (19:03)
[2024-07-21] MEDS: PHENobarbitaL sodium 130 MG/ML VIAL IM Q3Hx2 200 MG IM ×2 (20:01→23:01)
[2024-07-22] VITALS (7 sets, daily range): BP systolic 111–146; BP diastolic 62–88; PULSE 116–144; RESP 16–18; TEMP 36.8–37.1; O2SAT 93–98
--- NOTE | 2024-07-22 | ECG_ITS ---
Test Reason : tachy Blood Pressure : */* mmHG Vent. Rate : 126 BPM Atrial Rate : 126 BPM P-R Int : 132 ms QRS Dur : 74 ms QT Int : 316 ms P-R-T Axes : 47 34 53 degrees QTcB Int : 457 ms Sinus tachycardia Inferior infarct (cited on or before 20-Jul-2024) Abnormal ECG When compared with ECG of 21-Jul-2024 08:23, No significant change was found Referred By: Benny Rangel Electronically Signed By: ESTEVAN SHEPHERD
[2024-07-22 06:59] LABS: MANUAL DIFF FLAG NO
[2024-07-22 07:05] LABS: Basophils Absolute Auto 0.1 X10*3/uL (0.0-0.2); Basophils Percent Auto 0.8 % (0-2); Eosinophils Percent Auto 0.3 % (0-4); Hematocrit 31.9 % (42.0-52.0); Hemoglobin 10.9 g/dl (14.0-18.0); Imm Gran Pct Auto 0.8 % (0.0-0.4); Lymphocytes Absolute Auto 1.1 X10*3/uL (1.2-4.9); Lymphocytes Percent Auto 8.4 % (20-40); Mean Corpuscular HGB Conc 34.2 g/dl (31.0-36.0); Mean Corpuscular Hemoglobin 37.1 pg (27.0-33.0); Mean Corpuscular Volume 108.5 fL (80.0-98.0); Mean Platelet Volume 10.2 fL (9.4-12.4); Monocytes Absolute Auto 0.9 X10*3/uL (0.1-1.2); Monocytes Percent Auto 7.3 % (2-11); NRBC Pct Auto 0.2 /100WBC (0.0-0.2); Neutrophils Absolute Auto 10.6 x10*3/uL (2.0-8.3); Neutrophils Percent Auto 82.4 % (45-73); Platelet Count 127 X10*3/uL (160-400); Red Blood Count 2.94 X10*6/uL (4.60-5.80); Red Cell Distribution Width 18.5 % (11.0-16.0); White Blood Count 12.9 X10*3/uL (4.8-10.8)
[2024-07-22 07:29] LABS: Alanine Aminotransferase 56 U/L (0-40); Albumin Level 2.7 g/dL (3.5-5.0); Alkaline Phosphatase 273 U/L (39-117); Anion Gap 12 (12-20); Aspartate Amino Transferase 190 U/L (5-37); Bilirubin Direct 3.7 mg/dL (0.0-0.5); Bilirubin Total 5.9 mg/dL (0.0-1.0); Blood Urea Nitrogen 6 mg/dL (9-16); Calcium 7.5 mg/dL (8.4-10.2); Carbon Dioxide 28 mmol/L (22-29); Chloride 97 mmol/L (96-108); Creatinine Clr Calc Pharmacy 177.7; Estimated Glomerular Filt Rate > 60; Glucose Random 139 mg/dL (60-115); Magnesium 1.4 mg/dL (1.6-2.6); Potassium 3.5 mmol/L (3.3-5.1); Sodium 133 mmol/L (135-145); Total Protein 6.8 g/dL (6.5-8.0)
[2024-07-22] MEDS: Spironolactone 25 MG TABLET PO (08:24)
[2024-07-22] MEDS: 0.9 % Sodium Chloride Flush 3 ML SYRINGE IVFLUSH ×3 (08:25→20:57)
[2024-07-22] MEDS: PHENobarbitaL 15 MG TABLET 45 MG PO ×2 (08:25→20:36)
[2024-07-22] MEDS: Magnesium Oxide 400 MG TABLET PO ×2 (08:25→17:25)
[2024-07-22] MEDS: Magnesium Sulfate/H2O 2 GM/50 ML PIGGYBACK IV (08:26)
--- NOTE | 2024-07-22 10:55 | HO.PM.IMPN ---
Subjective Subjective Date of Service: 07/22/24 Interval History: no appetite Physical Exam Vital Signs: Vital Signs: Last Vital Signs Temp 98.8 F 07/22/24 07:51 Pulse 116 H 07/22/24 07:51 Resp 18 07/22/24 07:51 BP 146/88 H 07/22/24 07:51 Pulse Ox 94 07/22/24 07:51 O2 Del Method Room Air 07/22/24 07:51 O2 Flow Rate 1 07/21/24 07:04 BMI result Body Mass Index 40.8 General: AO X 3, no acute distress Resp: CTA bilateral, no accessory muscles used CVS: S1,S2,RRR GI: soft, non tender, distended Neuro: motor grossly intact, alert Psych: appropriate affect, appropriate insight Objective Data Active Medications Acetaminophen (Acetaminophen 325 Mg Tablet) 650 mg PO Q6H PRN PRN Reason: Pain, Mild 1-3,fever,headache Last Admin: 07/21/24 15:40 Dose: 650 mg Documented By: CLEMENTE Calcium Carbonate (Calcium Carbonate 750 Mg Tab.Chew) 750 mg PO Q4H PRN PRN Reason: Heartburn Ceftriaxone Sodium (Ceftriaxone Sodium 1 Gm Vial) 1 gm IVPUSH BEDTIME [facility] Last Admin: 07/21/24 21:07 Dose: 1 gm Documented By: MARCIAL Magnesium Hydroxide (Milk Of Magnesia 30 Ml Oral.Susp) 30 ml PO DAILY PRN PRN Reason: Constipation Magnesium Oxide (Magnesium Oxide 400 Mg Tablet) 400 mg PO BIDPC [facility] Last Admin: 07/22/24 08:25 Dose: 400 mg Documented By: SALVADOR Melatonin (Melatonin 3 Mg Tablet) 6 mg PO BEDTIME PRN PRN Reason: Insomnia Morphine Sulfate (Morphine Sulfate 2 Mg/Ml Cartridge) 2 mg IVPUSH Q4H PRN; Protocol PRN Reason: Pain, Severe (Pain Scale 7-10) Last Admin: 07/21/24 20:06 Dose: 2 mg Documented By: MARCIAL Oxycodone HCl (Oxycodone Hcl Immed Release 5 Mg Tablet) 5 mg PO Q6H PRN PRN Reason: Pain, Moderate(Pain Scale 4-6) Last Admin: 07/21/24 15:40 Dose: 5 mg Documented By: CLEMENTE Pharmacy Consult (Consult Rx Etoh Phenob Im/Po) 1 each MISCELLANE ONCE PRN; Protocol PRN Reason: Consult order Phenobarbital (Phenobarbital 15 Mg Tablet) 45 mg PO BID [facility]; Protocol Stop: 07/23/24 21:01 Last Admin: 07/22/24 08:25 Dose: 45 mg Documented By: SALVADOR Phenobarbital (Phenobarbital 30 Mg Tablet) 30 mg PO BID [facility]; Protocol Stop: 07/25/24 21:01 Phenobarbital (Phenobarbital 30 Mg Tablet) 30 mg PO DAILY [facility]; Protocol Stop: 07/27/24 09:01 Sodium Chloride (0.9 % Sodium Chloride Flush 3 Ml Syringe) 3 ml IVFLUSH QSHIFT [facility] Last Admin: 07/22/24 08:25 Dose: 3 ml Documented By: SALVADOR Spironolactone (Spironolactone 25 Mg Tablet) 25 mg PO DAILY [facility]; Protocol Last Admin: 07/22/24 08:24 Dose: 25 mg Documented By: SALVADOR Thiamine HCl (Thiamine Hcl 100 Mg Tablet) 100 mg PO DAILY [facility] Labs 07/22/24 05:54 07/22/24 05:54 Labs: Laboratory Results - last 24 hr 07/21/24 07/22/24 13:06 05:54 MCV 108.5 H MCH 37.1 H MCHC 34.2 RDW 18.5 H Plt Count 127 L MPV 10.2 Immature Gran % (Auto) 0.8 H Neut % (Auto) 82.4 H Lymph % (Auto) 8.4 L [place] % (Auto) 7.3 Eos % (Auto) 0.3 Baso % (Auto) 0.8 Lymph # (Auto) 1.1 L [place] # (Auto) 0.9 Eos # (Auto) 0.0 Baso # (Auto) 0.1 Abs Immat Gran (auto) 0.10 H Absolute Neuts (auto) 10.6 H Absolute Nucleated RBC 0.020 H Nucleated RBC % (auto) 0.2 Anion Gap 12 Estim Creat Clear Calc 177.7 Estimated GFR > 60 Random Glucose 139 H Calcium 7.5 L Magnesium 1.4 L* Total Bilirubin 5.9 H Direct Bilirubin 3.7 H AST 190 H ALT 56 H Alkaline Phosphatase 273 H Total Protein 6.8 Albumin 2.7 L Urine Color Dark Yellow Urine Appearance Clear Urine pH 6.5 Ur Specific [place] 1.020 Urine Protein 30 (1+) H Urine Glucose (UA) Negative Urine Ketones Trace Urine Blood Negative Urine Nitrite Negative Ur Leukocyte Esterase Trace H Urine RBC 0-2 Urine WBC 0-5 Ur Squamous Epith Cells 0-2 Urine Bacteria None Seen Hyaline Casts 0-2 Microbiology Microbiology Results: Microbiology 07/21/24 01:23 Gram Stain - Final Abdominal Fluid Routine Culture - Preliminary No growth to date. Anaerobic Culture - Preliminary No growth to date. 07/21/24 02:21 Blood Culture - Preliminary Blood - Venous No growth after 24 hours. 07/21/24 02:21 Blood Culture - Preliminary Blood - Venous No growth after 24 hours. Assessment and Plan (1) ETOH abuse: Status: Acute Plan 39M PMH alcohol dependence, hypertension noncompliant, morbid obesity presented with abdominal pain and distention Acute alcoholic hepatitis Likely underlying chronic alcoholic steatohepatitis Complicated by symptomatic ascites No evidence of SBP on paracentesis (5 L, given albumin) Continue Aldactone, high-protein diet Monitor LFTs Alcohol dependence with withdrawal Continue phenobarbital protocol Addiction following Isolated fever Unclear significance, empirically treating with ceftriaxone, so far workup negative Acute hypomagnesemia Replace and monitor Morbid obesity Weight loss recommended Hyperammonemia No evidence of encephalopathy Prediabetes Weight loss recommended DVT prophylaxis-Lovenox Full Code reason for continued hospitalization: Still poor intake, monitoring LFTs Quality Stroke Does the patient have a stroke diagnosis?: No VTE Prior VTE?: No VTE Risk Level:: Medical - moderate - high VTE Device Contraindication: N/A - Device Ordered VTE Drug Contraindication: Treatment Not Indicated
[2024-07-22] MEDS: Thiamine HCL 100 MG TABLET PO (11:04)
[2024-07-22] MEDS: Morphine Sulfate 2 MG/ML CARTRIDGE IVPUSH ×2 (11:10→20:56)
[2024-07-22] MEDS: Spironolactone 25 MG TABLET 100 MG PO (13:18)
[2024-07-22] MEDS: Furosemide 40 MG/4 ML SOLUTION PO (13:18)
--- NOTE | 2024-07-22 13:19 | MHC.CM.PN ---
PER ROUNDS PT NOT MEDICALLY READY FOR DC
[2024-07-22] MEDS: PHENobarbitaL sodium 130 MG/ML VIAL IM (16:13)
--- NOTE | 2024-07-22 16:24 | PC.NURSE ---
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 HR 130's sustained. Nurse in to see pt. Pt anxious, with visible tremors. MD notified. New orders for phenobarbitlol 130mg IM and EKG. IM injection given in left deltoid. Will reassess pt. for decreased s/s of withdrawl.
--- NOTE | 2024-07-22 16:54 | P.PNGI_ITS ---
Subjective Subjective Date of Service: 07/22/24 Interval History: feels better would like another paracentesis Critical Care Time (minutes): 0 Physical Exam 2 Vital Signs: Vital Signs: Last Vital Signs Temp 98.3 F 07/22/24 15:55 Pulse 144 H 07/22/24 16:12 Resp 16 07/22/24 15:55 BP 121/68 07/22/24 15:55 Pulse Ox 98 07/22/24 15:55 O2 Del Method Room Air 07/22/24 15:55 O2 Flow Rate 1 07/21/24 07:04 BMI result Body Mass Index 40.8 GI: Other: abdomen is protuberant labs show cholestasis Objective Data Labs 07/22/24 05:54 07/22/24 05:54 Labs: Laboratory Results - last 24 hr 07/22/24 05:54 WBC 12.9 H RBC 2.94 L Hgb 10.9 L Hct 31.9 L MCV 108.5 H MCH 37.1 H MCHC 34.2 RDW 18.5 H Plt Count 127 L MPV 10.2 Immature Gran % (Auto) 0.8 H Neut % (Auto) 82.4 H Lymph % (Auto) 8.4 L [place] % (Auto) 7.3 Eos % (Auto) 0.3 Baso % (Auto) 0.8 Lymph # (Auto) 1.1 L [place] # (Auto) 0.9 Eos # (Auto) 0.0 Baso # (Auto) 0.1 Abs Immat Gran (auto) 0.10 H Absolute Neuts (auto) 10.6 H Absolute Nucleated RBC 0.020 H Nucleated RBC % (auto) 0.2 Sodium 133 L Potassium 3.5 Chloride 97 Carbon Dioxide 28 Anion Gap 12 BUN 6 L Creatinine 0.70 Estim Creat Clear Calc 177.7 Estimated GFR > 60 Random Glucose 139 H Calcium 7.5 L Magnesium 1.4 L* Total Bilirubin 5.9 H Direct Bilirubin 3.7 H AST 190 H ALT 56 H Alkaline Phosphatase 273 H Total Protein 6.8 Albumin 2.7 L Microbiology Microbiology Results: Microbiology 07/21/24 01:23 Abdominal Fluid Gram Stain - Final 07/21/24 01:23 Abdominal Fluid Routine Culture - Preliminary No growth to date. 07/21/24 01:23 Abdominal Fluid Anaerobic Culture - Preliminary No growth to date. 07/21/24 02:21 Blood - Venous Blood Culture - Preliminary No growth after 24 hours. 07/21/24 02:21 Blood - Venous Blood Culture - Preliminary No growth after 24 hours. Procedures Date of Service Date of Service: 07/22/24 Progress Note: A&P Assessment and plan (1) Alcohol use disorder, severe, dependence: Start date: 07/22/24 Status: Acute Assessment and Plan: no evidence of sbp on testing diuretics started paracentesis with albumin prn. Time Spent With Patient Time: Total time managing care of this patient today ____ minutes. Quality Stroke Does the patient have a stroke diagnosis?: No VTE Prior VTE?: No VTE Risk Level:: Medical - moderate - high VTE Device Contraindication: N/A - Device Ordered VTE Drug Contraindication: Treatment Not Indicated
--- NOTE | 2024-07-22 17:06 | PC.NURSE ---
Primary RN notified this teletypewriter installer of no ekg completed by cardiology, AIRPORT MAINTENANCE CHIEF sent to do EKG STEF.
[2024-07-22] MEDS: PHENobarbitaL sodium 130 MG/ML VIAL 265 MG IM (17:37)
[2024-07-22] MEDS: diazePAM 10 MG/2 ML CARTRIDGE 5 MG IVPUSH (18:44)
[2024-07-22] MEDS: cefTRIAXone sodium 1 GM VIAL IVPUSH (20:36)
[2024-07-23] VITALS (9 sets, daily range): BP systolic 92–130; BP diastolic 59–86; PULSE 112–136; RESP 14–36; TEMP 36.3–36.9; O2SAT 92–97
[2024-07-23 05:34] LABS: MANUAL DIFF FLAG NO
[2024-07-23 05:40] LABS: Basophils Absolute Auto 0.1 X10*3/uL (0.0-0.2); Basophils Percent Auto 0.5 % (0-2); Eosinophils Absolute Auto 0.1 X10*3/uL (0.0-0.4); Eosinophils Percent Auto 0.5 % (0-4); Hemoglobin 11.2 g/dl (14.0-18.0); Imm Gran Abs Auto 0.13 X10*3/uL (0.00-0.03); Imm Gran Pct Auto 0.8 % (0.0-0.4); Lymphocytes Absolute Auto 1.7 X10*3/uL (1.2-4.9); Lymphocytes Percent Auto 10.7 % (20-40); Mean Corpuscular HGB Conc 33.9 g/dl (31.0-36.0); Mean Corpuscular Hemoglobin 37.2 pg (27.0-33.0); Mean Corpuscular Volume 109.6 fL (80.0-98.0); Mean Platelet Volume 10.3 fL (9.4-12.4); Monocytes Absolute Auto 1.1 X10*3/uL (0.1-1.2); Monocytes Percent Auto 7.1 % (2-11); NRBC Pct Auto 0.3 /100WBC (0.0-0.2); Neutrophils Absolute Auto 12.5 x10*3/uL (2.0-8.3); Neutrophils Percent Auto 80.4 % (45-73); Platelet Count 140 X10*3/uL (160-400); Red Blood Count 3.01 X10*6/uL (4.60-5.80); Red Cell Distribution Width 17.8 % (11.0-16.0); White Blood Count 15.5 X10*3/uL (4.8-10.8)
[2024-07-23 05:48] LABS: INTERNATIONAL NORM RATIO 1.5 (0.9-1.1); Prothrombin Time 17.2 SEC (10.9-12.4)
[2024-07-23 06:02] LABS: Alanine Aminotransferase 53 U/L (0-40); Albumin Level 2.6 g/dL (3.5-5.0); Alkaline Phosphatase 271 U/L (39-117); Anion Gap 14 (12-20); Aspartate Amino Transferase 182 U/L (5-37); Bilirubin Direct 3.8 mg/dL (0.0-0.5); Bilirubin Total 5.6 mg/dL (0.0-1.0); Blood Urea Nitrogen 7 mg/dL (9-16); Calcium 7.8 mg/dL (8.4-10.2); Carbon Dioxide 27 mmol/L (22-29); Chloride 95 mmol/L (96-108); Creatinine Clr Calc Pharmacy 159.5; Estimated Glomerular Filt Rate > 60; Glucose Random 124 mg/dL (60-115); Magnesium 1.7 mg/dL (1.6-2.6); Potassium 3.8 mmol/L (3.3-5.1); Sodium 132 mmol/L (135-145); Total Protein 6.9 g/dL (6.5-8.0)
[2024-07-23] MEDS: PHENobarbitaL 15 MG TABLET 45 MG PO ×2 (08:38→20:14)
[2024-07-23] MEDS: 0.9 % Sodium Chloride Flush 3 ML SYRINGE IVFLUSH ×3 (08:38→20:22)
[2024-07-23] MEDS: Magnesium Oxide 400 MG TABLET PO ×2 (08:38→17:48)
[2024-07-23] MEDS: Enoxaparin Sodium 40 MG/0.4 ML SYRINGE SUBCUT (08:38)
[2024-07-23] MEDS: Thiamine HCL 100 MG TABLET PO (08:38)
[2024-07-23] MEDS: Morphine Sulfate 2 MG/ML CARTRIDGE IVPUSH ×2 (08:53→14:34)
--- NOTE | 2024-07-23 09:45 | P.PNIM_ITS ---
Subjective Subjective Date of Service: 07/23/24 Interval History: no appetite Physical Exam 2 Vital Signs: Vital Signs: Last Vital Signs Temp 98 F 07/23/24 07:04 Pulse 112 H 07/23/24 07:04 Resp 15 07/23/24 07:04 BP 124/70 07/23/24 07:04 Pulse Ox 94 07/23/24 07:04 O2 Del Method Room Air 07/23/24 07:04 O2 Flow Rate 1 07/21/24 07:04 BMI result Body Mass Index 40.8 GI: Other: abdomen is protuberant labs show cholestasis Objective Data Active Medications Acetaminophen (Acetaminophen 325 Mg Tablet) 650 mg PO Q6H PRN PRN Reason: Pain, Mild 1-3,fever,headache Last Admin: 07/21/24 15:40 Dose: 650 mg Documented By: CLEMENTE Calcium Carbonate (Calcium Carbonate 750 Mg Tab.Chew) 750 mg PO Q4H PRN PRN Reason: Heartburn Ceftriaxone Sodium (Ceftriaxone Sodium 1 Gm Vial) 1 gm IVPUSH BEDTIME [facility] Last Admin: 07/22/24 20:36 Dose: 1 gm Documented By: JOSE ALEJANDRO Enoxaparin Sodium (Enoxaparin Sodium 40 Mg/0.4 Ml Syringe) 40 mg SUBCUT Q24H [facility] Last Admin: 07/23/24 08:38 Dose: 40 mg Documented By: SEVERIANO Magnesium Hydroxide (Milk Of Magnesia 30 Ml Oral.Susp) 30 ml PO DAILY PRN PRN Reason: Constipation Magnesium Oxide (Magnesium Oxide 400 Mg Tablet) 400 mg PO BIDPC [facility] Last Admin: 07/23/24 08:38 Dose: 400 mg Documented By: SEVERIANO Melatonin (Melatonin 3 Mg Tablet) 6 mg PO BEDTIME PRN PRN Reason: Insomnia Morphine Sulfate (Morphine Sulfate 2 Mg/Ml Cartridge) 2 mg IVPUSH Q4H PRN; Protocol PRN Reason: Pain, Severe (Pain Scale 7-10) Last Admin: 07/23/24 08:53 Dose: 2 mg Documented By: SEVERIANO Oxycodone HCl (Oxycodone Hcl Immed Release 5 Mg Tablet) 5 mg PO Q6H PRN PRN Reason: Pain, Moderate(Pain Scale 4-6) Last Admin: 07/21/24 15:40 Dose: 5 mg Documented By: CLEMENTE Pharmacy Consult (Consult Rx Etoh Phenob Im/Po) 1 each MISCELLANE ONCE PRN; Protocol PRN Reason: Consult order Phenobarbital (Phenobarbital 15 Mg Tablet) 45 mg PO BID [facility]; Protocol Stop: 07/23/24 21:01 Last Admin: 07/23/24 08:38 Dose: 45 mg Documented By: SEVERIANO Phenobarbital (Phenobarbital 30 Mg Tablet) 30 mg PO BID [facility]; Protocol Stop: 07/25/24 21:01 Phenobarbital (Phenobarbital 30 Mg Tablet) 30 mg PO DAILY [facility]; Protocol Stop: 07/27/24 09:01 Sodium Chloride (0.9 % Sodium Chloride Flush 3 Ml Syringe) 3 ml IVFLUSH QSHIFT [facility] Last Admin: 07/23/24 08:38 Dose: 3 ml Documented By: SEVERIANO Thiamine HCl (Thiamine Hcl 100 Mg Tablet) 100 mg PO DAILY [facility] Last Admin: 07/23/24 08:38 Dose: 100 mg Documented By: SEVERIANO Labs 07/23/24 05:14 07/23/24 05:14 Labs: Laboratory Results - last 24 hr 07/23/24 05:14 MCV 109.6 H MCH 37.2 H MCHC 33.9 RDW 17.8 H Plt Count 140 L MPV 10.3 Immature Gran % (Auto) 0.8 H Neut % (Auto) 80.4 H Lymph % (Auto) 10.7 L [place] % (Auto) 7.1 Eos % (Auto) 0.5 Baso % (Auto) 0.5 Lymph # (Auto) 1.7 [place] # (Auto) 1.1 Eos # (Auto) 0.1 Baso # (Auto) 0.1 Abs Immat Gran (auto) 0.13 H Absolute Neuts (auto) 12.5 H Absolute Nucleated RBC 0.040 H Nucleated RBC % (auto) 0.3 H PT 17.2 H INR 1.5 H Anion Gap 14 Estim Creat Clear Calc 159.5 Estimated GFR > 60 Random Glucose 124 H Calcium 7.8 L Magnesium 1.7 Total Bilirubin 5.6 H Direct Bilirubin 3.8 H AST 182 H ALT 53 H Alkaline Phosphatase 271 H Total Protein 6.9 Albumin 2.6 L Microbiology Microbiology Results: Microbiology 07/21/24 01:23 Gram Stain - Final Abdominal Fluid Routine Culture - Final No growth. Anaerobic Culture - Preliminary No growth to date. 04/22/25 02:21 Blood Culture - Preliminary Blood - Venous No growth after 48 hours. 07/21/24 02:21 Blood Culture - Preliminary Blood - Venous No growth after 48 hours. Assessment and Plan (1) ETOH abuse: Status: Acute Plan 39M PMH alcohol dependence, hypertension noncompliant, morbid obesity presented with abdominal pain and distention Acute alcoholic hepatitis Likely underlying chronic alcoholic steatohepatitis Complicated by symptomatic ascites No evidence of SBP on paracentesis (5 L, given albumin), will repeat Continue Aldactone, high-protein diet Monitor LFTs Alcohol dependence with withdrawal Continue phenobarbital protocol Addiction following Isolated fever Unclear significance, empirically treating with ceftriaxone, so far workup negative Acute hypomagnesemia Replace and monitor Morbid obesity Weight loss recommended Hyperammonemia No evidence of encephalopathy Prediabetes Weight loss recommended DVT prophylaxis-Lovenox Full Code reason for continued hospitalization: Still poor intake, monitoring LFTs Quality Stroke Does the patient have a stroke diagnosis?: No VTE Prior VTE?: No VTE Risk Level:: Medical - moderate - high VTE Device Contraindication: N/A - Device Ordered VTE Drug Contraindication: Treatment Not Indicated
--- NOTE | 2024-07-23 12:04 | MHC.CM.PN ---
Per MD rounds, plan is for Paracentesis. Possible DC home tomorrow.
--- NOTE | 2024-07-23 14:10 | PM.GIPN ---
Subjective Subjective Date of Service: 07/23/24 Interval History: tolerating diet Critical Care Time (minutes): 0 Physical Exam Vital Signs: Vital Signs: Last Vital Signs Temp 98 F 07/23/24 07:04 Pulse 124 H 07/23/24 13:40 Resp 36 H 07/23/24 13:40 BP 128/79 07/23/24 13:40 Pulse Ox 96 07/23/24 13:40 O2 Del Method Room Air 07/23/24 13:40 O2 Flow Rate 1 07/21/24 07:04 BMI result Body Mass Index 40.8 Const: Other: looks well GI: Other: abdomen is protuberant and nontender Objective Data Labs 07/23/24 05:14 07/23/24 05:14 Labs: Laboratory Results - last 24 hr 07/23/24 05:14 WBC 15.5 H RBC 3.01 L Hgb 11.2 L Hct 33.0 L MCV 109.6 H MCH 37.2 H MCHC 33.9 RDW 17.8 H Plt Count 140 L MPV 10.3 Immature Gran % (Auto) 0.8 H Neut % (Auto) 80.4 H Lymph % (Auto) 10.7 L [place] % (Auto) 7.1 Eos % (Auto) 0.5 Baso % (Auto) 0.5 Lymph # (Auto) 1.7 [place] # (Auto) 1.1 Eos # (Auto) 0.1 Baso # (Auto) 0.1 Abs Immat Gran (auto) 0.13 H Absolute Neuts (auto) 12.5 H Absolute Nucleated RBC 0.040 H Nucleated RBC % (auto) 0.3 H PT 17.2 H INR 1.5 H Sodium 132 L Potassium 3.8 Chloride 95 L Carbon Dioxide 27 Anion Gap 14 BUN 7 L Creatinine 0.78 Estim Creat Clear Calc 159.5 Estimated GFR > 60 Random Glucose 124 H Calcium 7.8 L Magnesium 1.7 Total Bilirubin 5.6 H Direct Bilirubin 3.8 H AST 182 H ALT 53 H Alkaline Phosphatase 271 H Total Protein 6.9 Albumin 2.6 L Microbiology Microbiology Results: Microbiology 07/21/24 01:23 Abdominal Fluid Gram Stain - Final 07/21/24 01:23 Abdominal Fluid Routine Culture - Final No growth. 07/21/24 01:23 Abdominal Fluid Anaerobic Culture - Preliminary No growth to date. 07/21/24 02:21 Blood - Venous Blood Culture - Preliminary No growth after 48 hours. 07/21/24 02:21 Blood - Venous Blood Culture - Preliminary No growth after 48 hours. Procedures Date of Service Date of Service: 07/23/24 Progress Note: A&P Assessment and plan (1) Alcohol use disorder, severe, dependence: Status: Acute Assessment and Plan: hospital course, labs and imaging reviewed in detail with patient discussed need for alcohol cessation and natural history of alcoholic hepatitis discussed diuretic therapy, diet lo in sodium, and O>>I by 500 ml daily paracentesis can be done prn discomfort. todays visit was 60 minutes. Time Spent With Patient Time: Total time managing care of this patient today ____ minutes. Quality Stroke Does the patient have a stroke diagnosis?: No VTE Prior VTE?: No VTE Risk Level:: Medical - moderate - high VTE Device Contraindication: N/A - Device Ordered VTE Drug Contraindication: Treatment Not Indicated
[2024-07-23] MEDS: Lidocaine HCl 1 % MPF 5 ML VIAL SUBCUT (14:30)
[2024-07-23] MEDS: Albumin Human 25 % 100 ML IV ×2 (14:34→20:15)
--- NOTE | 2024-07-23 15:22 | P.CDIM_ITS ---
PROVIDER RESPONSE TEXT: To clarify, the appropriate diagnosis supported by the clinical indicators: Acute QUERY TEXT: PHYSICIAN'S DOCUMENTATION REQUEST Date of Query: 07/21/2024 01:47 PM EDT Patient Name: Dandre Villatoro Admit Date: 07/21/2024 Dear Zurdo Tavera MD, A review of the medical record indicates additional documentation may be needed. Please review below and update the documentation accordingly. Clinical Indicators: Lactic acidosis due to liver dysfunction LA 2.1 Clarify which of the following accurately represents the acuity of the lactic acidosis. Possible options might include: Acute Acute on chronic Compensated Chronic stable condition Remission Other (explain) Clinically unable to determine (explain) Thank you, Mame Castellanos RN Use of terms such as suspected, likely, concern for, or probable (associated with a specific diagnosi s that is being evaluated, monitored, or treated as if it exists) are acceptable and can be coded in the inpatient se tting, when documented at the time of discharge. Please use your independent medical judgment in providing your response. THIS QUERY IS PART OF THE PERMANENT MEDICAL RECORD
[2024-07-23] MEDS: 0.9 % Sodium Chloride 1,000 ML 999 ML IV (16:37)
[2024-07-23] MEDS: cefTRIAXone sodium 1 GM VIAL IVPUSH (20:14)
[2024-07-24 04:00] VITALS: BP 129/72; PULSE 120; RESP 16; TEMP 36.2; O2SAT 94
[2024-07-24 05:58] LABS: Hemoglobin 10.8 g/dl (14.0-18.0); Mean Corpuscular Hemoglobin 37.8 pg (27.0-33.0); PLT CLUMP 1; Red Blood Count 2.86 X10*6/uL (4.60-5.80)
[2024-07-24 05:59] LABS: Hematocrit 31.5 % (42.0-52.0); Mean Corpuscular HGB Conc 34.3 g/dl (31.0-36.0); Mean Platelet Volume 9.8 fL (9.4-12.4); NRBC Pct Auto 0.1 /100WBC (0.0-0.2); Red Cell Distribution Width 17.8 % (11.0-16.0)
[2024-07-24 06:12] LABS: Mean Corpuscular Volume 110.1 fL (80.0-98.0); Platelet Count 147 X10*3/uL (160-400)
[2024-07-24 06:21] LABS: Alanine Aminotransferase 40 U/L (0-40); Albumin Level 2.7 g/dL (3.5-5.0); Alkaline Phosphatase 232 U/L (39-117); Anion Gap 13 (12-20); Aspartate Amino Transferase 160 U/L (5-37); Bilirubin Total 5.9 mg/dL (0.0-1.0); Blood Urea Nitrogen 7 mg/dL (9-16); Calcium 7.6 mg/dL (8.4-10.2); Carbon Dioxide 24 mmol/L (22-29); Chloride 97 mmol/L (96-108); Creatinine Clr Calc Pharmacy 170.4; Estimated Glomerular Filt Rate > 60; Glucose Random 165 mg/dL (60-115); INTERNATIONAL NORM RATIO 1.7 (0.9-1.1); Potassium 3.3 mmol/L (3.3-5.1); Prothrombin Time 19.7 SEC (10.9-12.4); Sodium 131 mmol/L (135-145); Total Protein 6.4 g/dL (6.5-8.0)
[2024-07-24 08:00] VITALS: BP 117/74; PULSE 114; RESP 16; TEMP 36.2; O2SAT 95
[2024-07-24] MEDS: PHENobarbitaL 30 MG TABLET PO (09:33)
[2024-07-24] MEDS: 0.9 % Sodium Chloride Flush 3 ML SYRINGE IVFLUSH (09:33)
[2024-07-24] MEDS: Thiamine HCL 100 MG TABLET PO (09:33)
[2024-07-24] MEDS: Magnesium Oxide 400 MG TABLET PO (09:33)
--- NOTE | 2024-07-24 10:55 | P.PNIM_ITS ---
Subjective Subjective Date of Service: 07/24/24 Interval History: appetite improving Physical Exam 2 Vital Signs: Vital Signs: Last Vital Signs Temp 97.1 F 07/24/24 08:00 Pulse 114 H 07/24/24 08:00 Resp 16 07/24/24 08:00 BP 117/74 07/24/24 08:00 Pulse Ox 95 07/24/24 08:00 O2 Del Method Room Air 07/24/24 08:00 O2 Flow Rate 1 07/21/24 07:04 BMI result Body Mass Index 40.8 Const: Other: looks well GI: Other: abdomen is protuberant and nontender Objective Data Active Medications Acetaminophen (Acetaminophen 325 Mg Tablet) 650 mg PO Q6H PRN PRN Reason: Pain, Mild 1-3,fever,headache Last Admin: 07/21/24 15:40 Dose: 650 mg Documented By: CLEMENTE Calcium Carbonate (Calcium Carbonate 750 Mg Tab.Chew) 750 mg PO Q4H PRN PRN Reason: Heartburn Ceftriaxone Sodium (Ceftriaxone Sodium 1 Gm Vial) 1 gm IVPUSH BEDTIME [facility] Last Admin: 07/23/24 20:14 Dose: 1 gm Documented By: JOSE ALEJANDRO Enoxaparin Sodium (Enoxaparin Sodium 40 Mg/0.4 Ml Syringe) 40 mg SUBCUT Q24H [facility] Last Admin: 07/24/24 09:34 Dose: Not Given Documented By: SEVERIANO Non-Admin Reason: Patient Refused Magnesium Hydroxide (Milk Of Magnesia 30 Ml Oral.Susp) 30 ml PO DAILY PRN PRN Reason: Constipation Magnesium Oxide (Magnesium Oxide 400 Mg Tablet) 400 mg PO BIDPC [facility] Last Admin: 07/24/24 09:33 Dose: 400 mg Documented By: SEVERIANO Melatonin (Melatonin 3 Mg Tablet) 6 mg PO BEDTIME PRN PRN Reason: Insomnia Morphine Sulfate (Morphine Sulfate 2 Mg/Ml Cartridge) 2 mg IVPUSH Q4H PRN; Protocol PRN Reason: Pain, Severe (Pain Scale 7-10) Last Admin: 07/23/24 14:34 Dose: 2 mg Documented By: SEVERIANO Oxycodone HCl (Oxycodone Hcl Immed Release 5 Mg Tablet) 5 mg PO Q6H PRN PRN Reason: Pain, Moderate(Pain Scale 4-6) Last Admin: 07/21/24 15:40 Dose: 5 mg Documented By: CLEMENTE Pharmacy Consult (Consult Rx Etoh Phenob Im/Po) 1 each MISCELLANE ONCE PRN; Protocol PRN Reason: Consult order Phenobarbital (Phenobarbital 30 Mg Tablet) 30 mg PO BID [facility]; Protocol Stop: 07/25/24 21:01 Last Admin: 07/24/24 09:33 Dose: 30 mg Documented By: SEVERIANO Phenobarbital (Phenobarbital 30 Mg Tablet) 30 mg PO DAILY [facility]; Protocol Stop: 07/27/24 09:01 Sodium Chloride (0.9 % Sodium Chloride Flush 3 Ml Syringe) 3 ml IVFLUSH QSHIFT [facility] Last Admin: 07/24/24 09:33 Dose: 3 ml Documented By: SEVERIANO Thiamine HCl (Thiamine Hcl 100 Mg Tablet) 100 mg PO DAILY [facility] Last Admin: 07/24/24 09:33 Dose: 100 mg Documented By: SEVERIANO Labs 07/24/24 05:33 07/24/24 05:33 Labs: Laboratory Results - last 24 hr 07/24/24 05:33 MCV 110.1 H MCH 37.8 H MCHC 34.3 RDW 17.8 H Plt Count 147 L MPV 9.8 Absolute Nucleated RBC 0.020 H Nucleated RBC % (auto) 0.1 Smear Path Review SEE NOTE PT 19.7 H INR 1.7 H Anion Gap 13 Estim Creat Clear Calc 170.4 Estimated GFR > 60 Random Glucose 165 H Calcium 7.6 L Total Bilirubin 5.9 H Direct Bilirubin 4.0 H AST 160 H ALT 40 Alkaline Phosphatase 232 H Total Protein 6.4 L Albumin 2.7 L Microbiology Microbiology Results: Microbiology 07/21/24 01:23 Gram Stain - Final Abdominal Fluid Routine Culture - Final No growth. Anaerobic Culture - Preliminary No growth to date. Assessment and Plan (1) ETOH abuse: Status: Acute Plan 39M PMH alcohol dependence, hypertension noncompliant, morbid obesity presented with abdominal pain and distention Acute alcoholic hepatitis Likely underlying chronic alcoholic steatohepatitis Complicated by symptomatic ascites No evidence of SBP on paracentesis 07/21/24 (5 L, given albumin), repeated about 5L and given albumin 07/23/24 Continue high-protein diet Monitor LFTs Alcohol dependence with withdrawal Continue phenobarbital protocol Addiction following Isolated fever Unclear significance, empirically treating with ceftriaxone, so far workup negative Acute hypomagnesemia Replace and monitor Morbid obesity Weight loss recommended Hyperammonemia No evidence of encephalopathy Prediabetes Weight loss recommended DVT prophylaxis-Lovenox Full Code reason for continued hospitalization: monitor lft Quality Stroke Does the patient have a stroke diagnosis?: No VTE Prior VTE?: No VTE Risk Level:: Medical - moderate - high VTE Device Contraindication: N/A - Device Ordered VTE Drug Contraindication: Treatment Not Indicated
--- NOTE | 2024-07-24 10:57 | PM.DS ---
DS: Providers Provider Date of Service: 07/24/24 Date of admission: 07/21/24 01:29 Date of discharge: 07/24/24 Primary care physician: None Physician Consults: 07/21/24 01:29 Consult to Gastroenterology Routine Consulting Provider: Lane Pitt Reason for consultation: large ascites s/p paracentesis Has provider been notified: No 07/21/24 01:52 Addiction Medicine Provider Routine Consulting Provider: Addiction Covering Reason for consultation: etoh abuse Has provider been notified: No 07/22/24 08:39 Inpt - Recovery Team Routine Comment: Reason for consultation: VASQUEZ eval and AUDIT c DS: Diagnosis Discharge Diagnosis (1) ETOH abuse: Status: Acute DS: Summary Hospital Course Hospital Course: from initial hpi: 39 yo male with a pmhx significant for HTN (non compliant with meds x1 year), who presented to the ED due to weight gain, abd distension, and SOB. he states he has noticed weight gain for at least 3 weeks and has has increasing SOB and LE edema. he drinks 6-7 shots/day, his last drink about 11am yesterday. he has never had etoh withdrawal, but has never gone days without drinking. In the ED he was found to have moderate ascites on an A/P CT and 5200ml was drawn off and sent to the lab for analysis. his SOB has improved. he denies any chest pain, nausea, vomiting, hematemesis or melena. since having the paracentesis he is having moderate/severe abd pain. hospital course: Patient was admitted for acute alcoholic hepatitis likely underlying chronic alcoholic steatohepatitis. This was complicated by symptomatic ascites. He underwent 2 paracentesis 5 L each and given albumin. Labs were negative for spontaneous bacterial peritonitis. Was seen by Gastroenterology who recommended diuretics and high-protein diet. Patient will follow up outpatient with them. For alcohol dependence with withdrawal was continued on phenobarbital protocol and resolved. Patient had 1 incidence of fever this was empirically treated with ceftriaxone which has been discontinued on discharge, no source was detected. For acute hypomagnesemia received replacement. For morbid obesity weight loss recommended. Patient was noted to have hyperammonemia but no evidence of encephalopathy. For prediabetes patient should continue to monitor as outpatient. Time Attestation Discharge Coordination Time (in mins): 34 Quality: Safe Use of Opioids Does Pt have an Active Cancer Diagnosis on the Problem List?: No Quality: Stroke Does the patient have a stroke diagnosis?: No Physical Exam Vital Signs: Vital Signs: Last Vital Signs Temp 97.1 F 07/24/24 08:00 Pulse 114 H 07/24/24 08:00 Resp 16 07/24/24 08:00 BP 117/74 07/24/24 08:00 Pulse Ox 95 07/24/24 08:00 O2 Del Method Room Air 07/24/24 08:00 O2 Flow Rate 1 07/21/24 07:04 BMI result Body Mass Index 40.8 Const: Other: looks well GI: Other: abdomen is protuberant and nontender DS: Data Data Completed and Pending Labs on day of discharge: Laboratory Results - last 24 hr 07/24/24 05:33 WBC 14.0 H RBC 2.86 L Hgb 10.8 L Hct 31.5 L MCV 110.1 H MCH 37.8 H MCHC 34.3 RDW 17.8 H Plt Count 147 L MPV 9.8 Absolute Nucleated RBC 0.020 H Nucleated RBC % (auto) 0.1 Smear Path Review SEE NOTE PT 19.7 H INR 1.7 H Sodium 131 L Potassium 3.3 Chloride 97 Carbon Dioxide 24 Anion Gap 13 BUN 7 L Creatinine 0.73 Estim Creat Clear Calc 170.4 Estimated GFR > 60 Random Glucose 165 H Calcium 7.6 L Total Bilirubin 5.9 H Direct Bilirubin 4.0 H AST 160 H ALT 40 Alkaline Phosphatase 232 H Total Protein 6.4 L Albumin 2.7 L Preliminary micro results at discharge 07/21/24 01:23 Anaerobic Culture - Preliminary Abdominal Fluid No growth to date. 07/21/24 02:21 Blood Culture - Preliminary Blood - Venous No growth after 48 hours. 07/21/24 02:21 Blood Culture - Preliminary Blood - Venous No growth after 48 hours. Discharge Plan Discharge Anticipated Discharge Date/Time: 07/24/24 10:52 Patient Disposition: Home, Self-Care Discharge Diagnosis: etoh hepatitis Referrals: Lane Pitt MD [Physician] - 1 Week Physician,None [Primary Care Provider] - 1 Week Discharge Medications: New thiamine mononitrate (vit B1) 100 mg Tablet 100 mg PO DAILY Qty: 90 0RF furosemide [Lasix] 40 mg tablet 40 mg PO DAILY Qty: 90 0RF magnesium oxide 400 mg (241.3 mg magnesium) Tablet 400 mg PO BIDPC Qty: 180 0RF spironolactone 25 mg tablet 25 mg PO DAILY Qty: 90 0RF Diet: Advance to usual diet Activity on Discharge: no etoh Stand Alone Forms: Patient Portal Discharge page Print Language: Salvadorean Other Ambulatory Orders: Comprehensive Met. Panel (Routine) Timeframe: 1 Week Facility: [facility] - Location: Laboratory Ordered By: Benny Rangel Prothrombin Time INR (Routine) Timeframe: 1 Week Facility: [facility] - Location: Laboratory Ordered By: Benny Rangel Care Plan Goals: recovery Health Concerns: etoh Plan of Treatment: no etoh start lasix, aldactone may need further paracentesis for symptoms follow up with gi repeat labs in 1 week Assessment: see above
--- NOTE | 2024-07-24 11:20 | MHC.CM.PN ---
PT DCD HOME SELF CARE
[2024-07-24] MEDS: oxyCODONE HCl Immed Release 5 MG TABLET PO (12:47)
[2024-07-27 08:15] LABS: Glucose Peritoneal Fluid 181; LDH Peritoneal Fluid 135; Total Protein Peritoneal Fluid 1.6
== END 2024-07-24 13:09 | disposition home or self-care (01) | DRG 280 ==
LOC: HO.ED 22:05 → HO.EDOVER 07-21 01:35 → HO.S3 07-21 02:03
PROVIDERS: Registered Nurse Emergency; Student in an Organized Health Care Education/Training Program; Admitting Provider Physician Assistant; Emergency Provider Emergency Medicine; Visit Provider Internal Medicine
DX: K70.11 Alcoholic hepatitis with ascites (principal); E72.20 Disorder of urea cycle metabolism, unspecified; E87.21 Acute metabolic acidosis; F10.239 Alcohol dependence with withdrawal, unspecified; E83.42 Hypomagnesemia; R73.03 Prediabetes; K76.82 Hepatic encephalopathy; R94.31 Abnormal electrocardiogram [ECG] [EKG]; E66.01 Morbid (severe) obesity due to excess calories; Z71.3 Dietary counseling and surveillance; Z68.41 Body mass index [BMI] 40.0-44.9, adult; I10 Essential (primary) hypertension; D53.9 Nutritional anemia, unspecified; T50.2X6A Underdosing of carbonic-anhydrase inhibitors, benzothiadiazides and other diuretics, initial encounter; Z20.822 Contact with and (suspected) exposure to COVID-19; Z79.899 Other long term (current) drug therapy
CPT/HCPCS: 0241U; 36415; 49083; 71046; 74176; 80048; 80053; 80076; 81001; 82140; 82607; 82746; 82803; 82945; 83036; 83540; 83605; 83615; 83690; 83735; 83880; 84157; 84484; 85025; 85027; 85610; 86704; 86706; 86709; 86803; 87040; 87070; 87073; 87205; 87340; 89051; 93005; 99285; J0696; J1650; J1938; J2003; J2270; J2560; J3360; J3475; P9047; S9485

== ENCOUNTER → 2024-07-20 19:37 | Outpatient (BNV) | payer OTHER, SELFPAY | PROVIDERS: Admitting Provider Physician Assistant; Emergency Provider Emergency Medicine; Visit Provider Internal Medicine | DX: R00.0 Tachycardia, unspecified (principal) | CPT/HCPCS: 93010 ==

== ENCOUNTER → 2024-07-20 19:38 | Outpatient (BNV) | payer BC, SELFPAY | PROVIDERS: Visit Provider Student in an Organized Health Care Education/Training Program | DX: R18.8 Other ascites (principal); R16.0 Hepatomegaly, not elsewhere classified; K76.0 Fatty (change of) liver, not elsewhere classified | CPT/HCPCS: 71046; 74176 ==

== ENCOUNTER 2024-07-21 01:29 | Outpatient (BNV) | payer OTHER, SELFPAY | END 2024-07-21 08:23 | PROVIDERS: Admitting Provider Physician Assistant; Emergency Provider Emergency Medicine; Visit Provider Internal Medicine | DX: I25.2 Old myocardial infarction (principal); R00.0 Tachycardia, unspecified | CPT/HCPCS: 93010 ==

== ENCOUNTER 2024-07-21 01:29 | Outpatient (BNV) | payer BC, SELFPAY | END 2024-07-23 13:00 | PROVIDERS: Admitting Provider Physician Assistant; Emergency Provider Emergency Medicine | DX: R18.8 Other ascites (principal) | CPT/HCPCS: 49083 ==

== ENCOUNTER 2024-07-21 01:29 | Outpatient (BNV) | payer BC, SELFPAY | END 2024-07-22 17:11 | PROVIDERS: Admitting Provider Physician Assistant; Emergency Provider Emergency Medicine; Visit Provider Internal Medicine | DX: R00.0 Tachycardia, unspecified (principal); I25.2 Old myocardial infarction | CPT/HCPCS: 93010 ==

== ENCOUNTER → 2024-07-21 01:29 | Outpatient (BNV) | payer BC, SELFPAY | PROVIDERS: Admitting Provider Physician Assistant; Emergency Provider Emergency Medicine; Visit Provider Student in an Organized Health Care Education/Training Program | DX: F10.10 Alcohol abuse, uncomplicated (principal) | CPT/HCPCS: 99223; 99233; 99239; 99499 ==

== ENCOUNTER → 2024-07-21 01:29 | Outpatient (BNV) | payer OTHER, SELFPAY | PROVIDERS: Admitting Provider Physician Assistant; Emergency Provider Emergency Medicine; Visit Provider Nurse Practitioner Psychiatric/Mental Health | DX: F10.20 Alcohol dependence, uncomplicated (principal) | CPT/HCPCS: 99222 ==